=== PATIENT | female | born 1935 | race Caucasian/White ===

== ENCOUNTER 2025-04-15 06:41 | Inpatient (IN) | payer MEDICAID ==
[~2025-04-15] VITALS: Ht 160 cm; Wt 67.1 kg
[2025-04-15] VITALS (53 sets, daily range): BP systolic 79–138; BP diastolic 49–71; PULSE 75–96; RESP 16–33; TEMP 36.6–36.8; O2SAT 91–99
[2025-04-15] MEDS: LACTATED RINGERS 1,000 ML IV SCH (07:00)
[2025-04-15] MEDS: CEFTRIAXONE 1GM/50ML 50 ML IV ONE (07:09)
[2025-04-15] MEDS: METHYLPREDNISOLONE SOD SUCC 125MG/2ML (ACT-O-VIAL) IV STA (07:19)
[2025-04-15 07:40] LABS: LACTIC ACID 3.2 mmol/L (0.4-2.0)
[2025-04-15] MEDS: IPRATROPIUM BROMIDE (0.02%) 0.5MG/2.5ML NEB HHN STA (07:40)
[2025-04-15] MEDS: ALBUTEROL (0.083%) 2.5MG/3ML NEB HHN SCH (07:40)
[2025-04-15 08:23] LABS: CREATININE 1.0 mg/dL (0.6-1.0); UREA NITROGEN BLOOD 41 mg/dL (9-23)
[2025-04-15 08:24] LABS: TROPONIN I HIGH SENSITIVITY 20 ng/L (3.0-34)
[2025-04-15 08:25] LABS: ASPARTATE AMINOTRANSFERASE 21 IU/L (<34)
[2025-04-15 08:26] LABS: BILIRUBIN DIRECT 0.3 mg/dL (<=3.0); BILIRUBIN TOTAL 0.6 mg/dL (0.1-1.0); PROTEIN TOTAL 4.6 g/dL (6.0-8.3)
[2025-04-15 08:27] LABS: HEMATOCRIT. 43.3 % (36.0-48.0); HEMOGLOBIN. 14.5 g/dL (12.0-16.0); MEAN PLATELET VOLUME 8.4 fl (7.4-10.4); PLATELET 106 x1000/uL (130-400); RED BLOOD CELL COUNT 4.43 mill/uL (4.2-5.4); RED CELL DISTRIBUTION WIDTH 15.3 % (11.6-14.6)
[2025-04-15] MEDS: NOREPINEPHRINE 8MG/250ML PMX 250 ML IV ONE (08:28)
[2025-04-15] MEDS: AZITHROMYCIN 500MG/250ML 250 ML IV STA (08:31)
[2025-04-15 08:39] LABS: INR 1.3
[2025-04-15 09:20] LABS: TROPONIN I HIGH SENSITIVITY 25 ng/L (3.0-34)
[2025-04-15 09:42] LABS: BAND% 52.0 % (1.0-6.0); LYMPHOCYTES % MANUAL 1.0 % (20.0-60.0); MONOCYTES % MANUAL 2.0 % (2.0-8.0); NEUTROPHILS % MANUAL 45.0 % (45.0-75.0)
[2025-04-15 09:43] LABS: PLATELET ESTIMATE DECREAS
[2025-04-15] MEDS ORDERED: CEFEPIME 1GM IN DEXT 5% 50ML IV SCH (10:45)
[2025-04-15] MEDS: METHYLPREDNISOLONE SOD SUCC 40MG/ML (ACT-O-VIAL) IV SCH (10:55)
[2025-04-15] MEDS: GUAIFENESIN 600MG ER TABLET PO SCH (10:55)
[2025-04-15 11:01] LABS: BG BASE EXCESS 4.6 mmol/L (-2.0-3.0); BG CARBOXYHEMOGLOBIN 0.6 % (0.5-1.5); BG DEOXYHEMOGLOBIN 7.1 % (0.0-5.0); BG FLOW(L/min) 6.00 L/min; BG FRACTION INSPIRED OXYGEN 44; BG HCO3 ACT 30.7 mmol/L (21.0-28.0); BG METHEMOGLOBIN 0.3 % (0.5-1.5); BG OXYGEN SATURATION 92.8 % (94.0-98.0); BG OXYHEMOGLOBIN 92.0 % (94.0-98.0); BG PCO2 50.1 mmHg (32.0-45.0); BG PH 7.405 (7.350-7.450); BG PO2 66.7 mmHg (83.0-108.0); BG SAMPLE SITE LEFT BRACHIAL; BG TOTAL HEMOGLOBIN 16.5 g/dL (12.0-16.0); BG VENT MODE NASAL CANNULA
[2025-04-15] MEDS: PANTOPRAZOLE SODIUM 40 MG/VIAL IV SCH (13:01)
[2025-04-15] MEDS: CEFEPIME 1GM/50ML 50 ML IV SCH (14:38)
[2025-04-15] MEDS: NOREPINEPHRINE 8MG/250ML PMX 250 ML IV PRN (14:55)
[2025-04-15] MEDS: IPRATROPIUM/ALBUTEROL 0.5-3(2.5)MG/3ML NEB HHN SCH (15:13)
[2025-04-16] VITALS (92 sets, daily range): BP systolic 90–178; BP diastolic 42–84; PULSE 66–96; RESP 18–29; TEMP 36.4–37.1; O2SAT 91–99
[2025-04-16] MEDS ORDERED: ONDANSETRON HCL 4MG/2ML INJ IV PRN (02:30)
[2025-04-16] MEDS ORDERED: ACETAMINOPHEN 325MG TABLET PO PRN (02:30)
[2025-04-16] MEDS: SODIUM CHLORIDE 0.9% 1,000 ML IV SCH (02:30)
[2025-04-16] MEDS ORDERED: DIPHENHYDRAMINE 50MG/ML VIAL IV PRN (02:30)
[2025-04-16] MEDS: SODIUM CHLORIDE 0.9% 3ML FLUSH IVF SCH (06:35)
[2025-04-16] MEDS: AZITHROMYCIN 500 MG TABLET PO SCH (09:04)
[2025-04-16] MEDS: MIDODRINE HCL 5MG TABLET PO SCH (10:12)
[2025-04-16] MEDS: ACETYLCYSTEINE 200MG/ML 20% VIAL 4ML INH SCH (13:48)
[2025-04-16] MEDS: ENOXAPARIN 60MG/0.6ML SYR SUBCUT SCH (16:15)
[2025-04-17] VITALS (56 sets, daily range): BP systolic 97–123; BP diastolic 48–77; PULSE 60–85; RESP 12–25; TEMP 36.4–36.9; O2SAT 94–99
[2025-04-17 06:11] LABS: HEMATOCRIT. 43.8 % (36.0-48.0); HEMOGLOBIN. 14.6 g/dL (12.0-16.0); MEAN PLATELET VOLUME 8.6 fl (7.4-10.4); PLATELET 75 x1000/uL (130-400); RED BLOOD CELL COUNT 4.49 mill/uL (4.2-5.4); RED CELL DISTRIBUTION WIDTH 15.2 % (11.6-14.6)
[2025-04-17 06:16] LABS: UREA NITROGEN BLOOD 25 mg/dL (9-23)
[2025-04-17 06:28] LABS: CREATININE 0.5 mg/dL (0.6-1.0)
[2025-04-17] MEDS: METHYLPREDNISOLONE SOD SUCC 40MG/ML (ACT-O-VIAL) IV SCH (09:05)
[2025-04-17 11:40] LABS: BAND% 19.0 % (1.0-6.0); LYMPHOCYTES % MANUAL 3.0 % (20.0-60.0); METAMYELOCYTES % 2.0 % (0-0); MONOCYTES % MANUAL 2.0 % (2.0-8.0); NEUTROPHILS % MANUAL 74.0 % (45.0-75.0)
[2025-04-17 11:41] LABS: PLATELET ESTIMATE DECREASED
[2025-04-17] MEDS: ACETAMINOPHEN 325MG TABLET PO PRN (17:14)
[2025-04-18] VITALS (9 sets, daily range): BP systolic 117–132; BP diastolic 45–65; PULSE 65–88; RESP 16–20; TEMP 36.2–36.6; O2SAT 93–100
[2025-04-19] VITALS (10 sets, daily range): BP systolic 114–146; BP diastolic 7–85; PULSE 67–85; RESP 16–20; TEMP 36.2–36.6; O2SAT 96–100
[2025-04-20] VITALS (9 sets, daily range): BP systolic 105–147; BP diastolic 63–84; PULSE 18–105; RESP 15–22; TEMP 36.2–36.4; O2SAT 93–100
[2025-04-21] VITALS (7 sets, daily range): BP systolic 97–155; BP diastolic 47–74; PULSE 79–127; RESP 16–20; TEMP 36.4–36.6; O2SAT 92–98
[2025-04-21 11:21] LABS: HEMATOCRIT. 46.8 % (36.0-48.0); HEMOGLOBIN. 15.4 g/dL (12.0-16.0); MEAN PLATELET VOLUME 8.5 fl (7.4-10.4); PLATELET 84 x1000/uL (130-400); RED BLOOD CELL COUNT 4.91 mill/uL (4.2-5.4); RED CELL DISTRIBUTION WIDTH 14.9 % (11.6-14.6)
[2025-04-21 11:46] LABS: CREATININE 0.4 mg/dL (0.6-1.0); UREA NITROGEN BLOOD 13 mg/dL (9-23)
[2025-04-21 11:48] LABS: PHOSPHORUS 2.5 mg/dL (2.5-4.9)
[2025-04-21 14:25] LABS: BAND% 44.0 % (1.0-6.0); LYMPHOCYTES % MANUAL 3.0 % (20.0-60.0); MONOCYTES % MANUAL 1.0 % (2.0-8.0); NEUTROPHILS % MANUAL 52.0 % (45.0-75.0)
[2025-04-21 14:26] LABS: PLATELET ESTIMATE DECREAS
[2025-04-21] MEDS ORDERED: DIGOXIN 500MCG/2ML AMP IV ONE (18:30)
[2025-04-21] MEDS: DIGOXIN 500MCG/2ML AMP IV SCH ×2 (18:52→22:30)
[2025-04-21] MEDS: DEXT 5%/0.45% NACL 1000ML 1,000 ML IV SCH (18:52)
[2025-04-21] MEDS: DILTIAZEM HCL 5MG/ML 5ML VIAL IV SCH (18:52)
[2025-04-21 19:30] LABS: HEPATITIS C VIR.AB 0.03 INDEXVAL (0.00-0.80)
[2025-04-21 20:43] LABS: HIV 1/2 AB P24AG Negative (Negative)
[2025-04-21] MEDS: BUDESONIDE 0.5MG/2ML NEB HHN SCH (23:55)
[2025-04-22] VITALS (8 sets, daily range): BP systolic 125–147; BP diastolic 52–71; PULSE 89–102; RESP 18–20; TEMP 36.2–36.8; O2SAT 92–98
[2025-04-22] MEDS: KCL 20MEQ/100ML PREMIX 100 ML IV SCH (10:03)
[2025-04-22] MEDS ORDERED: CEFEPIME 2GM IN DEXT 5% 100ML IV SCH (11:00)
[2025-04-22] MEDS: MAGNESIUM 4 G PREMIX 100 ML IV ONE (11:15)
[2025-04-22] MEDS: CEFEPIME 2GM PREMIX 100ML IV SCH (12:22)
[2025-04-23] VITALS (9 sets, daily range): BP systolic 111–142; BP diastolic 44–78; PULSE 85–93; RESP 18–20; TEMP 36.3–36.6; O2SAT 90–99
[2025-04-23] MEDS: IPRATROPIUM BROMIDE (0.02%) 0.5MG/2.5ML NEB HHN SCH (11:12)
[2025-04-24] VITALS (10 sets, daily range): BP systolic 112–132; BP diastolic 41–58; PULSE 70–88; RESP 17–25; TEMP 36.4–36.6; O2SAT 94–98
[2025-04-24 07:37] LABS: HEMATOCRIT. 44.1 % (36.0-48.0); HEMOGLOBIN. 14.1 g/dL (12.0-16.0); RED BLOOD CELL COUNT 4.43 mill/uL (4.2-5.4); RED CELL DISTRIBUTION WIDTH 14.8 % (11.6-14.6)
[2025-04-24 08:00] LABS: CREATININE 0.5 mg/dL (0.6-1.0)
[2025-04-24 08:01] LABS: UREA NITROGEN BLOOD 10 mg/dL (9-23)
[2025-04-24 08:03] LABS: PHOSPHORUS 2.3 mg/dL (2.5-4.9)
[2025-04-24] MEDS: IPRATROPIUM BROMIDE (0.02%) 0.5MG/2.5ML NEB HHN SCH (08:55)
[2025-04-24 09:11] LABS: PLATELET 39 x1000/uL (130-400)
[2025-04-24 09:16] LABS: BAND% 70.0 % (1.0-6.0); LYMPHOCYTES % MANUAL 1.0 % (20.0-60.0); MONOCYTES % MANUAL 2.0 % (2.0-8.0); NEUTROPHILS % MANUAL 27.0 % (45.0-75.0); PLATELET ESTIMATE DECREASED
[2025-04-24] MEDS: KCL 20MEQ/100ML PREMIX 100 ML IV ONE (09:38)
[2025-04-24] MEDS: MAGNESIUM 1 G PREMIX 100 ML IV SCH (13:14)
[2025-04-24] MEDS: ACETYLCYSTEINE 200MG/ML 20% VIAL 4ML INH SCH (13:47)
[2025-04-24] MEDS: POTASSIUM PHOSPHATE 20 MMOL in DEXT 5% WATER 243.3333 ML IV ONE (14:48)
[2025-04-25] VITALS (12 sets, daily range): BP systolic 97–126; BP diastolic 49–69; PULSE 66–96; RESP 16–24; TEMP 36.4–36.8; O2SAT 94–98
[2025-04-25] MEDS: LEVOTHYROXINE SODIUM 100MCG TABLET NG SCH (11:30)
[2025-04-26] VITALS (12 sets, daily range): BP systolic 120–135; BP diastolic 51–64; PULSE 76–91; RESP 17–24; TEMP 36.3–36.8; O2SAT 5–99
[2025-04-26] MEDS: IPRATROPIUM/ALBUTEROL 0.5-3(2.5)MG/3ML NEB HHN PRN (09:06)
[2025-04-26] MEDS: IPRATROPIUM/ALBUTEROL 0.5-3(2.5)MG/3ML NEB HHN SCH (13:10)
[2025-04-26] MEDS: POTASSIUM CHLORIDE 20MEQ/PACKET NG SCH (21:49)
[2025-04-26] MEDS: FUROSEMIDE 40MG/4ML VIAL IVP SCH (21:49)
[2025-04-26] MEDS: GUAIFENESIN 200MG/10ML SUGAR FREE UDC NG PRN (21:49)
[2025-04-27] VITALS (21 sets, daily range): BP systolic 86–129; BP diastolic 36–73; PULSE 78–96; RESP 18–41; TEMP 36.4–37; O2SAT 89–97
[2025-04-27 06:46] LABS: CREATININE 0.7 mg/dL (0.6-1.0); UREA NITROGEN BLOOD 14 mg/dL (9-23)
[2025-04-27 06:48] LABS: BASOPHILS % 0.2 % (0.0-2.0); EOSINOPHILS % 1.5 % (0.0-5.0); HEMATOCRIT. 42.4 % (36.0-48.0); HEMOGLOBIN. 13.8 g/dL (12.0-16.0); LYMPHOCYTES % 7.9 % (20.0-50.0); MEAN PLATELET VOLUME 8.7 fl (7.4-10.4); MONOCYTES % 3.2 % (2.0-8.0); NEUTROPHILS % 87.2 % (40.0-76.0); PHOSPHORUS 1.6 mg/dL (2.5-4.9); RED BLOOD CELL COUNT 4.35 mill/uL (4.2-5.4); RED CELL DISTRIBUTION WIDTH 14.6 % (11.6-14.6)
[2025-04-27] MEDS ORDERED: MAGNESIUM 4 G PREMIX 100 ML IV NR (11:00)
[2025-04-27] MEDS: MAGNESIUM 4 G PREMIX 100 ML IV ONE (11:26)
[2025-04-27] MEDS: POTASSIUM CHLORIDE 20MEQ/PACKET PO SCH (11:26)
[2025-04-27 13:16] LABS: PLATELET 37 x1000/uL (130-400)
[2025-04-27] MEDS: MIDODRINE HCL 5MG TABLET PO SCH (17:19)
[2025-04-28] VITALS (23 sets, daily range): BP systolic 79–161; BP diastolic 38–116; PULSE 75–123; RESP 22–35; TEMP 36.5–37.2; O2SAT 85–99
[2025-04-28 07:35] LABS: BG BASE EXCESS 13.0 mmol/L (-2.0-3.0); BG CARBOXYHEMOGLOBIN 1.0 % (0.5-1.5); BG DEOXYHEMOGLOBIN 3.4 % (0.0-5.0); BG FLOW(L/min) 15.00 L/min; BG FRACTION INSPIRED OXYGEN 100; BG HCO3 ACT 43.6 mmol/L (21.0-28.0); BG METHEMOGLOBIN 0.4 % (0.5-1.5); BG OXYGEN SATURATION 96.6 % (94.0-98.0); BG OXYHEMOGLOBIN 95.2 % (94.0-98.0); BG PCO2 90.4 mmHg (32.0-45.0); BG PH 7.301 (7.350-7.450); BG PO2 91.2 mmHg (83.0-108.0); BG SAMPLE SITE RIGHT RADIAL; BG TOTAL HEMOGLOBIN 13.7 g/dL (12.0-16.0); BG VENT MODE MASK - NRB
[2025-04-28 10:44] LABS: BG BASE EXCESS 17.1 mmol/L (-2.0-3.0); BG CARBOXYHEMOGLOBIN 0.5 % (0.5-1.5); BG DEOXYHEMOGLOBIN 2.9 % (0.0-5.0); BG FRACTION INSPIRED OXYGEN 100; BG HCO3 ACT 46.8 mmol/L (21.0-28.0); BG METHEMOGLOBIN 0.2 % (0.5-1.5); BG OXYGEN SATURATION 97.1 % (94.0-98.0); BG OXYHEMOGLOBIN 96.4 % (94.0-98.0); BG PCO2 86.8 mmHg (32.0-45.0); BG PH 7.350 (7.350-7.450); BG PO2 91.3 mmHg (83.0-108.0); BG SAMPLE SITE RIGHT RADIAL; BG TOTAL HEMOGLOBIN 12.7 g/dL (12.0-16.0); BG VENT MODE MASK - BIPAP; BG VENT RATE 22.0 set
[2025-04-28] MEDS: SODIUM CHLORIDE 0.9% 500 ML IV ONE (14:15)
[2025-04-28] MEDS: MIDODRINE HCL 5MG TABLET PO SCH (14:15)
[2025-04-28] MEDS: MIDODRINE HCL 5MG TABLET PO NR (14:16)
[2025-04-28 16:27] LABS: PLATELET 52 x1000/uL (130-400); RED BLOOD CELL COUNT 3.53 mill/uL (4.2-5.4); RED CELL DISTRIBUTION WIDTH 15.3 % (11.6-14.6)
[2025-04-28] MEDS: POTASSIUM PHOSPHATE 30 MMOL in DEXT 5% WATER 490 ML IV SCH (16:31)
[2025-04-28 16:45] LABS: CREATININE 0.8 mg/dL (0.6-1.0); UREA NITROGEN BLOOD 24 mg/dL (9-23)
[2025-04-28 16:47] LABS: PHOSPHORUS 3.1 mg/dL (2.5-4.9)
[2025-04-28] MEDS ORDERED: MIDODRINE HCL 5MG TABLET PO SCH (17:00)
[2025-04-28] MEDS: MIDODRINE HCL 5MG TABLET NG SCH (18:39)
[2025-04-28 19:14] LABS: CLARITY URINE CLOUDY (CLEAR); COLOR URINE DARK YELLOW (YELLOW); GLUCOSE URINE NEGATIVE (NEGATIVE); KETONES URINE TRACE (NEGATIVE); LEUKOCYTE ESTERASE URINE TRACE (NEGATIVE); NITRITE URINE NEGATIVE (NEGATIVE); OCCULT BLOOD URINE TRACE (NEGATIVE); PH URINE 5.0 (4.5-8.0); PROTEIN URINE 2+ (NEGATIVE); SPECIFIC GRAVITY URINE 1.022 (1.005-1.030); UROBILINOGEN URINE 1.0 E.U./dL (0.2-1.0)
[2025-04-28 20:05] LABS: BACTERIA URINE 2+; RBC URINE 0-2 /hpf (0-2); SQUAMOUS EPITHELIAL CELL URINE 1+ /lpf (RARE/1+); WBC URINE 0-2 /hpf (0-2)
[2025-04-29] VITALS (18 sets, daily range): BP systolic 103–129; BP diastolic 39–76; PULSE 66–86; RESP 19–32; TEMP 36.7–36.9; O2SAT 93–100
[2025-04-29] MEDS: MEROPENEM 1G/100ML 100 ML IV SCH ×2 (06:00→17:52)
[2025-04-29 06:21] LABS: HEMATOCRIT. 35.1 % (36.0-48.0); HEMOGLOBIN. 11.2 g/dL (12.0-16.0); MEAN PLATELET VOLUME 8.7 fl (7.4-10.4); RED BLOOD CELL COUNT 3.60 mill/uL (4.2-5.4); RED CELL DISTRIBUTION WIDTH 15.0 % (11.6-14.6)
[2025-04-29 06:29] LABS: PLATELET 50 x1000/uL (130-400)
[2025-04-29 06:35] LABS: CREATININE 0.8 mg/dL (0.6-1.0); UREA NITROGEN BLOOD 26 mg/dL (9-23)
[2025-04-29 06:37] LABS: PHOSPHORUS 5.0 mg/dL (2.5-4.9)
[2025-04-29 12:06] LABS: BAND% 58.0 % (1.0-6.0); LYMPHOCYTES % MANUAL 4.0 % (20.0-60.0); MONOCYTES % MANUAL 2.0 % (2.0-8.0); NEUTROPHILS % MANUAL 36.0 % (45.0-75.0); PLATELET ESTIMATE DECREASED
[2025-04-30] VITALS (17 sets, daily range): BP systolic 101–124; BP diastolic 38–53; PULSE 76–91; RESP 22–32; TEMP 36.2–37.2; O2SAT 88–100
[2025-04-30] MEDS: DEXT 5%/0.45% NACL 1000ML 1,000 ML IV SCH (14:29)
[2025-04-30 19:04] LABS: BG BASE EXCESS 17.2 mmol/L (-2.0-3.0); BG CARBOXYHEMOGLOBIN 0.4 % (0.5-1.5); BG DEOXYHEMOGLOBIN 10.6 % (0.0-5.0); BG FRACTION INSPIRED OXYGEN 70; BG HCO3 ACT 46.5 mmol/L (21.0-28.0); BG METHEMOGLOBIN 0.1 % (0.5-1.5); BG OXYGEN SATURATION 89.3 % (94.0-98.0); BG OXYHEMOGLOBIN 88.9 % (94.0-98.0); BG PCO2 82.5 mmHg (32.0-45.0); BG PH 7.369 (7.350-7.450); BG PO2 59.2 mmHg (83.0-108.0); BG SAMPLE SITE RIGHT RADIAL; BG TOTAL HEMOGLOBIN 12.8 g/dL (12.0-16.0); BG TOTAL RESPIRATORY RATE 32 b/min; BG VENT MODE MASK - BIPAP; BG VENT RATE 22.0 set
[2025-04-30 22:17] LABS: HEMATOCRIT. 37.3 % (36.0-48.0); HEMOGLOBIN. 11.8 g/dL (12.0-16.0); MEAN PLATELET VOLUME 8.9 fl (7.4-10.4); RED BLOOD CELL COUNT 3.77 mill/uL (4.2-5.4); RED CELL DISTRIBUTION WIDTH 15.1 % (11.6-14.6)
[2025-04-30 22:34] LABS: CREATININE 0.6 mg/dL (0.6-1.0); UREA NITROGEN BLOOD 26 mg/dL (9-23)
[2025-04-30 22:36] LABS: ASPARTATE AMINOTRANSFERASE 15 IU/L (<34); BILIRUBIN TOTAL 0.6 mg/dL (0.1-1.0); PROTEIN TOTAL 4.5 g/dL (6.0-8.3)
[2025-04-30 22:40] LABS: PLATELET 47 x1000/uL (130-400)
[2025-04-30 22:59] LABS: BAND% 4.0 % (1.0-6.0); EOSINOPHILS % MANUAL 1.0 % (0.0-5.0); LYMPHOCYTES % MANUAL 7.0 % (20.0-60.0); MONOCYTES % MANUAL 6.0 % (2.0-8.0); NEUTROPHILS % MANUAL 82.0 % (45.0-75.0)
[2025-04-30 23:00] LABS: PLATELET ESTIMATE MARKEDLY DECREASED
[2025-05-01] VITALS (16 sets, daily range): BP systolic 95–135; BP diastolic 39–54; PULSE 83–94; RESP 22–33; TEMP 36.6–37.1; O2SAT 92–99
[2025-05-01 07:53] LABS: HEMATOCRIT. 34.4 % (36.0-48.0); HEMOGLOBIN. 11.1 g/dL (12.0-16.0); MEAN PLATELET VOLUME 9.5 fl (7.4-10.4); RED BLOOD CELL COUNT 3.48 mill/uL (4.2-5.4); RED CELL DISTRIBUTION WIDTH 15.4 % (11.6-14.6)
[2025-05-01 08:09] LABS: CREATININE 0.6 mg/dL (0.6-1.0); UREA NITROGEN BLOOD 25 mg/dL (9-23)
[2025-05-01 08:11] LABS: ASPARTATE AMINOTRANSFERASE 15 IU/L (<34)
[2025-05-01 08:12] LABS: BILIRUBIN TOTAL 0.5 mg/dL (0.1-1.0); PROTEIN TOTAL 4.2 g/dL (6.0-8.3)
[2025-05-01 08:16] LABS: PLATELET 45 x1000/uL (130-400)
[2025-05-01 12:40] LABS: BG BASE EXCESS 15.5 mmol/L (-2.0-3.0); BG CARBOXYHEMOGLOBIN 1.3 % (0.5-1.5); BG DEOXYHEMOGLOBIN 5.5 % (0.0-5.0); BG FRACTION INSPIRED OXYGEN 50; BG HCO3 ACT 44.4 mmol/L (21.0-28.0); BG METHEMOGLOBIN 0.0 % (0.5-1.5); BG OXYGEN SATURATION 94.4 % (94.0-98.0); BG OXYHEMOGLOBIN 93.2 % (94.0-98.0); BG PCO2 79.5 mmHg (32.0-45.0); BG PH 7.365 (7.350-7.450); BG PO2 71.0 mmHg (83.0-108.0); BG SAMPLE SITE LEFT RADIAL; BG TOTAL HEMOGLOBIN 12.3 g/dL (12.0-16.0); BG VENT MODE MASK - CPAP; BG VENT RATE 24.0 set
[2025-05-01 14:23] LABS: BAND% 27.0 % (1.0-6.0); LYMPHOCYTES % MANUAL 4.0 % (20.0-60.0); MONOCYTES % MANUAL 3.0 % (2.0-8.0); NEUTROPHILS % MANUAL 66.0 % (45.0-75.0)
[2025-05-01 14:24] LABS: PLATELET ESTIMATE MARKEDLY DECREASED
[2025-05-02] VITALS (17 sets, daily range): BP systolic 92–110; BP diastolic 40–59; PULSE 78–92; RESP 24–32; TEMP 36.1–36.6; O2SAT 93–98
[2025-05-02 08:25] LABS: BG BASE EXCESS 17.2 mmol/L (-2.0-3.0); BG CARBOXYHEMOGLOBIN 0.6 % (0.5-1.5); BG DEOXYHEMOGLOBIN 4.8 % (0.0-5.0); BG FRACTION INSPIRED OXYGEN 50; BG HCO3 ACT 45.7 mmol/L (21.0-28.0); BG METHEMOGLOBIN 0.1 % (0.5-1.5); BG OXYGEN SATURATION 95.2 % (94.0-98.0); BG OXYHEMOGLOBIN 94.5 % (94.0-98.0); BG PCO2 76.8 mmHg (32.0-45.0); BG PH 7.392 (7.350-7.450); BG PO2 75.6 mmHg (83.0-108.0); BG SAMPLE SITE RIGHT RADIAL; BG TOTAL HEMOGLOBIN 12.0 g/dL (12.0-16.0); BG VENT MODE MASK - BIPAP; BG VENT RATE 24.0 set
[2025-05-03] VITALS (19 sets, daily range): BP systolic 95–118; BP diastolic 43–54; PULSE 74–97; RESP 20–32; TEMP 36.2–36.9; O2SAT 89–100
[2025-05-04] VITALS (18 sets, daily range): BP systolic 101–124; BP diastolic 47–60; PULSE 73–86; RESP 21–31; TEMP 36.3–36.7; O2SAT 92–99
[2025-05-04 07:55] LABS: BG BASE EXCESS 14.8 mmol/L (-2.0-3.0); BG CARBOXYHEMOGLOBIN 1.2 % (0.5-1.5); BG DEOXYHEMOGLOBIN 4.4 % (0.0-5.0); BG FRACTION INSPIRED OXYGEN 40; BG HCO3 ACT 41.2 mmol/L (21.0-28.0); BG METHEMOGLOBIN 0.1 % (0.5-1.5); BG OXYGEN SATURATION 95.5 % (94.0-98.0); BG OXYHEMOGLOBIN 94.3 % (94.0-98.0); BG PCO2 59.2 mmHg (32.0-45.0); BG PH 7.460 (7.350-7.450); BG PO2 73.9 mmHg (83.0-108.0); BG SAMPLE SITE RIGHT RADIAL; BG TOTAL HEMOGLOBIN 12.1 g/dL (12.0-16.0); BG TOTAL RESPIRATORY RATE 24 b/min; BG VENT MODE MASK - BIPAP; BG VENT RATE 24.0 set
[2025-05-05] VITALS (18 sets, daily range): BP systolic 101–126; BP diastolic 40–59; PULSE 75–87; RESP 17–33; TEMP 36.3–37.6; O2SAT 94–100
[2025-05-06] VITALS (14 sets, daily range): BP systolic 104–126; BP diastolic 43–59; PULSE 71–104; RESP 19–29; TEMP 36.2–37.2; O2SAT 94–99
[2025-05-06 09:05] LABS: BG BASE EXCESS 13.6 mmol/L (-2.0-3.0); BG CARBOXYHEMOGLOBIN 0.3 % (0.5-1.5); BG DEOXYHEMOGLOBIN 6.6 % (0.0-5.0); BG FRACTION INSPIRED OXYGEN 40; BG HCO3 ACT 40.4 mmol/L (21.0-28.0); BG METHEMOGLOBIN 0.0 % (0.5-1.5); BG OXYGEN SATURATION 93.4 % (94.0-98.0); BG OXYHEMOGLOBIN 93.1 % (94.0-98.0); BG PCO2 65.2 mmHg (32.0-45.0); BG PH 7.410 (7.350-7.450); BG PO2 71.9 mmHg (83.0-108.0); BG SAMPLE SITE RIGHT RADIAL; BG TOTAL HEMOGLOBIN 10.1 g/dL (12.0-16.0); BG VENT MODE MASK - BIPAP; BG VENT RATE 24.0 set
[2025-05-06] MEDS: IPRATROPIUM/ALBUTEROL 0.5-3(2.5)MG/3ML NEB HHN PRN (09:54)
[2025-05-07] VITALS (14 sets, daily range): BP systolic 113–166; BP diastolic 47–71; PULSE 80–105; RESP 24–28; TEMP 36.3–37.1; O2SAT 91–100
[2025-05-07] MEDS: LIDOCAINE HCL 1% 10 MG/ML 10ML VIAL ONE (10:39)
[2025-05-07] MEDS: ACETYLCYSTEINE 200MG/ML 20% VIAL 4ML INH SCH (21:59)
[2025-05-08] VITALS (15 sets, daily range): BP systolic 101–132; BP diastolic 48–72; PULSE 78–103; RESP 18–30; TEMP 36.8–37.1; O2SAT 92–100
[2025-05-08 06:32] LABS: UREA NITROGEN BLOOD 14 mg/dL (9-23)
[2025-05-08 06:33] LABS: CREATININE 0.4 mg/dL (0.6-1.0)
[2025-05-08 09:33] LABS: HEMATOCRIT. 28.4 % (36.0-48.0); HEMOGLOBIN. 9.3 g/dL (12.0-16.0); MEAN PLATELET VOLUME 8.3 fl (7.4-10.4); PLATELET 259 x1000/uL (130-400); RED BLOOD CELL COUNT 2.88 mill/uL (4.2-5.4); RED CELL DISTRIBUTION WIDTH 15.3 % (11.6-14.6)
[2025-05-08 10:56] LABS: BG BASE EXCESS 15.8 mmol/L (-2.0-3.0); BG CARBOXYHEMOGLOBIN 1.7 % (0.5-1.5); BG DEOXYHEMOGLOBIN 9.9 % (0.0-5.0); BG FLOW(L/min) 40.00 L/min; BG FRACTION INSPIRED OXYGEN 40; BG HCO3 ACT 44.7 mmol/L (21.0-28.0); BG METHEMOGLOBIN 0.3 % (0.5-1.5); BG OXYGEN SATURATION 89.9 % (94.0-98.0); BG OXYHEMOGLOBIN 88.1 % (94.0-98.0); BG PCO2 83.4 mmHg (32.0-45.0); BG PH 7.347 (7.350-7.450); BG PO2 59.8 mmHg (83.0-108.0); BG SAMPLE SITE LEFT RADIAL; BG TOTAL HEMOGLOBIN 10.8 g/dL (12.0-16.0); BG VENT MODE HIGH FLOW
[2025-05-08] MEDS: ENOXAPARIN 80MG/0.8ML SYR SUBCUT SCH (11:37)
[2025-05-08 16:27] LABS: BAND% 7.0 % (1.0-6.0); EOSINOPHILS % MANUAL 2.0 % (0.0-5.0); LYMPHOCYTES % MANUAL 13.0 % (20.0-60.0); METAMYELOCYTES % 2.0 % (0-0); MONOCYTES % MANUAL 11.0 % (2.0-8.0); MYELOCYTES % 2.0 % (0-0); NEUTROPHILS % MANUAL 63.0 % (45.0-75.0)
[2025-05-08 16:28] LABS: PLATELET ESTIMATE NORMAL
[2025-05-09] VITALS (19 sets, daily range): BP systolic 118–144; BP diastolic 52–71; PULSE 81–105; RESP 20–36; TEMP 36.1–37.7; O2SAT 91–99
[2025-05-09 18:51] LABS: BG BASE EXCESS 15.8 mmol/L (-2.0-3.0); BG CARBOXYHEMOGLOBIN 1.9 % (0.5-1.5); BG DEOXYHEMOGLOBIN 11.8 % (0.0-5.0); BG FLOW(L/min) 40.00 L/min; BG FRACTION INSPIRED OXYGEN 40; BG HCO3 ACT 44.4 mmol/L (21.0-28.0); BG METHEMOGLOBIN 0.3 % (0.5-1.5); BG OXYGEN SATURATION 87.9 % (94.0-98.0); BG OXYHEMOGLOBIN 86.0 % (94.0-98.0); BG PCO2 82.8 mmHg (32.0-45.0); BG PH 7.347 (7.350-7.450); BG PO2 54.7 mmHg (83.0-108.0); BG SAMPLE SITE LEFT RADIAL; BG TOTAL HEMOGLOBIN 10.1 g/dL (12.0-16.0); BG VENT MODE HIGH FLOW
[2025-05-10] VITALS (16 sets, daily range): BP systolic 80–142; BP diastolic 33–85; PULSE 68–107; RESP 20–45; TEMP 35.6–37.2; O2SAT 87–97
[2025-05-10] MEDS: MIDODRINE HCL 5MG TABLET PO SCH (15:22)
[2025-05-11] VITALS (16 sets, daily range): BP systolic 100–132; BP diastolic 41–65; PULSE 67–84; RESP 19–26; TEMP 35.8–36.8; O2SAT 71–96
[2025-05-12] VITALS (16 sets, daily range): BP systolic 98–132; BP diastolic 45–78; PULSE 72–92; RESP 21–28; TEMP 36.1–37.2; O2SAT 87–99
[2025-05-12 08:58] LABS: BG BASE EXCESS 15.7 mmol/L (-2.0-3.0); BG CARBOXYHEMOGLOBIN 0.5 % (0.5-1.5); BG DEOXYHEMOGLOBIN 4.0 % (0.0-5.0); BG FLOW(L/min) 4.00 L/min; BG HCO3 ACT 41.9 mmol/L (21.0-28.0); BG METHEMOGLOBIN 0.3 % (0.5-1.5); BG OXYGEN SATURATION 96.0 % (94.0-98.0); BG OXYHEMOGLOBIN 95.2 % (94.0-98.0); BG PCO2 61.6 mmHg (32.0-45.0); BG PH 7.450 (7.350-7.450); BG PO2 79.8 mmHg (83.0-108.0); BG SAMPLE SITE LEFT RADIAL; BG TOTAL HEMOGLOBIN 9.3 g/dL (12.0-16.0); BG VENT MODE NASAL CANNULA
[2025-05-12 10:04] LABS: HEMATOCRIT. 27.2 % (36.0-48.0); HEMOGLOBIN. 9.0 g/dL (12.0-16.0); MEAN PLATELET VOLUME 7.5 fl (7.4-10.4); PLATELET 363 x1000/uL (130-400); RED BLOOD CELL COUNT 2.78 mill/uL (4.2-5.4); RED CELL DISTRIBUTION WIDTH 15.8 % (11.6-14.6)
[2025-05-12 10:26] LABS: CREATININE 0.3 mg/dL (0.6-1.0)
[2025-05-12 10:27] LABS: UREA NITROGEN BLOOD 11 mg/dL (9-23)
[2025-05-12 10:29] LABS: PHOSPHORUS 3.1 mg/dL (2.5-4.9)
[2025-05-12] MEDS: IPRATROPIUM/ALBUTEROL 0.5-3(2.5)MG/3ML NEB HHN PRN (16:26)
[2025-05-13] VITALS (17 sets, daily range): BP systolic 96–143; BP diastolic 44–64; PULSE 70–82; RESP 21–26; TEMP 36.2–37; O2SAT 92–99
[2025-05-13 07:49] LABS: BAND% 29.0 % (1.0-6.0); EOSINOPHILS % MANUAL 1.0 % (0.0-5.0); LYMPHOCYTES % MANUAL 5.0 % (20.0-60.0); METAMYELOCYTES % 1.0 % (0-0); MONOCYTES % MANUAL 12.0 % (2.0-8.0); NEUTROPHILS % MANUAL 52.0 % (45.0-75.0); PLATELET ESTIMATE NORMAL
[2025-05-13 18:24] LABS: BG BASE EXCESS 18.5 mmol/L (-2.0-3.0); BG CARBOXYHEMOGLOBIN 0.6 % (0.5-1.5); BG DEOXYHEMOGLOBIN 7.3 % (0.0-5.0); BG FLOW(L/min) 5.00 L/min; BG FRACTION INSPIRED OXYGEN 40; BG HCO3 ACT 46.8 mmol/L (21.0-28.0); BG METHEMOGLOBIN 0.3 % (0.5-1.5); BG OXYGEN SATURATION 92.6 % (94.0-98.0); BG OXYHEMOGLOBIN 91.8 % (94.0-98.0); BG PCO2 82.9 mmHg (32.0-45.0); BG PH 7.370 (7.350-7.450); BG PO2 69.2 mmHg (83.0-108.0); BG SAMPLE SITE LEFT RADIAL; BG TOTAL HEMOGLOBIN 9.8 g/dL (12.0-16.0); BG VENT MODE NASAL CANNULA
[2025-05-14] VITALS (18 sets, daily range): BP systolic 97–126; BP diastolic 44–55; PULSE 69–77; RESP 18–25; TEMP 36.2–36.8; O2SAT 96–98
[2025-05-15] VITALS (16 sets, daily range): BP systolic 101–148; BP diastolic 43–73; PULSE 70–96; RESP 14–26; TEMP 36.2–36.8; O2SAT 97–99
[2025-05-15 10:09] LABS: BG BASE EXCESS 15.8 mmol/L (-2.0-3.0); BG CARBOXYHEMOGLOBIN 0.5 % (0.5-1.5); BG DEOXYHEMOGLOBIN 2.4 % (0.0-5.0); BG FRACTION INSPIRED OXYGEN 50; BG HCO3 ACT 43.2 mmol/L (21.0-28.0); BG METHEMOGLOBIN 0.1 % (0.5-1.5); BG OXYGEN SATURATION 97.6 % (94.0-98.0); BG OXYHEMOGLOBIN 97.0 % (94.0-98.0); BG PCO2 72.1 mmHg (32.0-45.0); BG PH 7.395 (7.350-7.450); BG PO2 101.0 mmHg (83.0-108.0); BG SAMPLE SITE RIGHT RADIAL; BG TOTAL HEMOGLOBIN 9.6 g/dL (12.0-16.0); BG VENT MODE MASK - BIPAP; BG VENT RATE 24.0 set
[2025-05-15 16:58] LABS: HEMATOCRIT. 26.2 % (36.0-48.0); HEMOGLOBIN. 8.5 g/dL (12.0-16.0); MEAN PLATELET VOLUME 7.8 fl (7.4-10.4); PLATELET 282 x1000/uL (130-400); RED BLOOD CELL COUNT 2.62 mill/uL (4.2-5.4); RED CELL DISTRIBUTION WIDTH 16.5 % (11.6-14.6)
[2025-05-15 17:14] LABS: UREA NITROGEN BLOOD 9 mg/dL (9-23)
[2025-05-15 17:16] LABS: PHOSPHORUS 3.7 mg/dL (2.5-4.9)
[2025-05-15 17:35] LABS: CREATININE 0.4 mg/dL (0.6-1.0); EOSINOPHILS % MANUAL 2.0 % (0.0-5.0); LYMPHOCYTES % MANUAL 20.0 % (20.0-60.0); MONOCYTES % MANUAL 8.0 % (2.0-8.0); NEUTROPHILS % MANUAL 70.0 % (45.0-75.0); PLATELET ESTIMATE NORMAL
[2025-05-16] VITALS (18 sets, daily range): BP systolic 104–147; BP diastolic 46–86; PULSE 71–83; RESP 17–26; TEMP 36.6–36.8; O2SAT 99–100
[2025-05-16 08:33] LABS: HEMATOCRIT. 25.7 % (36.0-48.0); HEMOGLOBIN. 8.5 g/dL (12.0-16.0); MEAN PLATELET VOLUME 8.3 fl (7.4-10.4); PLATELET 252 x1000/uL (130-400); RED BLOOD CELL COUNT 2.59 mill/uL (4.2-5.4); RED CELL DISTRIBUTION WIDTH 16.4 % (11.6-14.6)
[2025-05-16 08:49] LABS: CREATININE 0.3 mg/dL (0.6-1.0); UREA NITROGEN BLOOD 8 mg/dL (9-23)
[2025-05-16 08:51] LABS: PHOSPHORUS 3.8 mg/dL (2.5-4.9)
[2025-05-16 17:27] LABS: EOSINOPHILS % MANUAL 1.0 % (0.0-5.0); LYMPHOCYTES % MANUAL 9.0 % (20.0-60.0); MONOCYTES % MANUAL 14.0 % (2.0-8.0); NEUTROPHILS % MANUAL 76.0 % (45.0-75.0); PLATELET ESTIMATE NORMAL
[2025-05-17] VITALS (14 sets, daily range): BP systolic 110–141; BP diastolic 45–67; PULSE 74–97; RESP 20–26; TEMP 36.4–36.8; O2SAT 99–100
[2025-05-17 06:59] LABS: HEMATOCRIT. 23.5 % (36.0-48.0); HEMOGLOBIN. 8.0 g/dL (12.0-16.0); MEAN PLATELET VOLUME 7.6 fl (7.4-10.4); PLATELET 229 x1000/uL (130-400); RED BLOOD CELL COUNT 2.38 mill/uL (4.2-5.4); RED CELL DISTRIBUTION WIDTH 16.3 % (11.6-14.6)
[2025-05-17 07:12] LABS: CREATININE 0.3 mg/dL (0.6-1.0)
[2025-05-17 07:13] LABS: UREA NITROGEN BLOOD 9 mg/dL (9-23)
[2025-05-17 08:01] LABS: BAND% 8.0 % (1.0-6.0); EOSINOPHILS % MANUAL 13.0 % (0.0-5.0); LYMPHOCYTES % MANUAL 14.0 % (20.0-60.0); MONOCYTES % MANUAL 7.0 % (2.0-8.0); NEUTROPHILS % MANUAL 58.0 % (45.0-75.0); PLATELET ESTIMATE NORMAL
[2025-05-17 10:06] LABS: BG SAMPLE SITE RIGHT RADIAL; BG VENT MODE ROOM AIR
[2025-05-17 10:07] LABS: BG FRACTION INSPIRED OXYGEN 21
[2025-05-17 10:08] LABS: BG BASE EXCESS 17.2 mmol/L (-2.0-3.0); BG HCO3 ACT 45.6 mmol/L (21.0-28.0); BG OXYGEN SATURATION 89.2 % (94.0-98.0); BG PCO2 87.7 mmHg (32.0-45.0); BG PH 7.334 (7.350-7.450); BG PO2 59.9 mmHg (83.0-108.0); BG TOTAL HEMOGLOBIN 8.5 g/dL (12.0-16.0)
[2025-05-17 10:09] LABS: BG CARBOXYHEMOGLOBIN 1.1 % (0.5-1.5); BG DEOXYHEMOGLOBIN 10.6 % (0.0-5.0); BG METHEMOGLOBIN 0.3 % (0.5-1.5); BG OXYHEMOGLOBIN 88.0 % (94.0-98.0)
[2025-05-17 14:59] LABS: BG BASE EXCESS 17.6 mmol/L (-2.0-3.0); BG CARBOXYHEMOGLOBIN 0.8 % (0.5-1.5); BG DEOXYHEMOGLOBIN 0.9 % (0.0-5.0); BG FRACTION INSPIRED OXYGEN 44; BG HCO3 ACT 46.0 mmol/L (21.0-28.0); BG METHEMOGLOBIN 0.2 % (0.5-1.5); BG OXYGEN SATURATION 99.1 % (94.0-98.0); BG OXYHEMOGLOBIN 98.1 % (94.0-98.0); BG PCO2 86.3 mmHg (32.0-45.0); BG PH 7.345 (7.350-7.450); BG PO2 144.7 mmHg (83.0-108.0); BG SAMPLE SITE LEFT RADIAL; BG TOTAL HEMOGLOBIN 8.8 g/dL (12.0-16.0); BG VENT MODE NASAL CANNULA
[2025-05-18] VITALS (11 sets, daily range): BP systolic 100–125; BP diastolic 44–72; PULSE 73–88; RESP 16–24; TEMP 36.4–36.8; O2SAT 95–100
[2025-05-18] MEDS: ACETYLCYSTEINE 200MG/ML 20% VIAL 4ML INH SCH (00:29)
[2025-05-18] MEDS: IPRATROPIUM/ALBUTEROL 0.5-3(2.5)MG/3ML NEB HHN SCH (00:30)
[2025-05-18 07:30] LABS: HEMATOCRIT. 22.6 % (36.0-48.0); HEMOGLOBIN. 7.4 g/dL (12.0-16.0); MEAN PLATELET VOLUME 7.4 fl (7.4-10.4); PLATELET 196 x1000/uL (130-400); RED BLOOD CELL COUNT 2.23 mill/uL (4.2-5.4); RED CELL DISTRIBUTION WIDTH 16.2 % (11.6-14.6)
[2025-05-18 07:56] LABS: UREA NITROGEN BLOOD 9 mg/dL (9-23)
[2025-05-18 09:04] LABS: CREATININE 0.4 mg/dL (0.6-1.0)
[2025-05-18 09:26] LABS: BAND% 10.0 % (1.0-6.0); BASOPHILS % MANUAL 1.0 % (0.0-2.0); EOSINOPHILS % MANUAL 3.0 % (0.0-5.0); LYMPHOCYTES % MANUAL 11.0 % (20.0-60.0); METAMYELOCYTES % 5.0 % (0-0); MONOCYTES % MANUAL 10.0 % (2.0-8.0); NEUTROPHILS % MANUAL 60.0 % (45.0-75.0)
[2025-05-18 09:27] LABS: PLATELET ESTIMATE NORMAL
[2025-05-19] VITALS (12 sets, daily range): BP systolic 100–144; BP diastolic 52–96; PULSE 81–102; RESP 18–25; TEMP 36.5–37.2; O2SAT 94–100
[2025-05-19 07:24] LABS: BASOPHILS % 0.5 % (0.0-2.0); EOSINOPHILS % 4.3 % (0.0-5.0); HEMATOCRIT. 23.4 % (36.0-48.0); HEMOGLOBIN. 7.9 g/dL (12.0-16.0); LYMPHOCYTES % 20.3 % (20.0-50.0); MEAN PLATELET VOLUME 7.7 fl (7.4-10.4); MONOCYTES % 9.2 % (2.0-8.0); NEUTROPHILS % 65.7 % (40.0-76.0); PLATELET 183 x1000/uL (130-400); RED BLOOD CELL COUNT 2.32 mill/uL (4.2-5.4); RED CELL DISTRIBUTION WIDTH 16.0 % (11.6-14.6)
[2025-05-19 07:57] LABS: CREATININE 0.3 mg/dL (0.6-1.0); UREA NITROGEN BLOOD 7 mg/dL (9-23)
[2025-05-20] VITALS (19 sets, daily range): BP systolic 109–137; BP diastolic 51–72; PULSE 82–102; RESP 16–27; TEMP 36.3–36.8; O2SAT 95–100
[2025-05-20] MEDS: ACETAMINOPHEN 325MG TABLET PO PRN (12:28)
[2025-05-20 13:28] LABS: BASOPHILS % 0.6 % (0.0-2.0); EOSINOPHILS % 4.6 % (0.0-5.0); HEMATOCRIT. 22.7 % (36.0-48.0); HEMOGLOBIN. 7.6 g/dL (12.0-16.0); LYMPHOCYTES % 18.3 % (20.0-50.0); MEAN PLATELET VOLUME 7.6 fl (7.4-10.4); MONOCYTES % 10.3 % (2.0-8.0); NEUTROPHILS % 66.2 % (40.0-76.0); PLATELET 195 x1000/uL (130-400); RED BLOOD CELL COUNT 2.28 mill/uL (4.2-5.4); RED CELL DISTRIBUTION WIDTH 15.7 % (11.6-14.6)
[2025-05-20 13:49] LABS: CREATININE 0.3 mg/dL (0.6-1.0); UREA NITROGEN BLOOD 8 mg/dL (9-23)
[2025-05-21] VITALS (13 sets, daily range): BP systolic 111–145; BP diastolic 61–77; PULSE 86–101; RESP 17–33; TEMP 36.5–37.1; O2SAT 92–98
[2025-05-22] VITALS (15 sets, daily range): BP systolic 102–132; BP diastolic 46–64; PULSE 52–106; RESP 20–35; TEMP 36.3–37.1; O2SAT 81–98
[2025-05-22] MEDS: PANTOPRAZOLE SODIUM 40 MG/VIAL IV SCH (12:57)
[2025-05-22] MEDS ORDERED: DOPAMINE 400MG/250ML PREMIX 250 ML IV SCH (21:45)
[2025-05-22 22:06] LABS: BG CARBOXYHEMOGLOBIN 1.1 % (0.5-1.5); BG DEOXYHEMOGLOBIN 63.6 % (0.0-5.0); BG FRACTION INSPIRED OXYGEN 100; BG METHEMOGLOBIN 0.3 % (0.5-1.5); BG OXYGEN SATURATION 35.5 % (94.0-98.0); BG OXYHEMOGLOBIN 35.0 % (94.0-98.0); BG PCO2 0.0 mmHg (32.0-45.0); BG PH 6.869 (7.350-7.450); BG PO2 29.4 mmHg (83.0-108.0); BG SAMPLE SITE RIGHT RADIAL; BG TOTAL HEMOGLOBIN 8.2 g/dL (12.0-16.0); BG TOTAL RESPIRATORY RATE 26 b/min; BG VENT MODE MASK - BIPAP; BG VENT RATE 24.0 set
[2025-05-23] MEDS ORDERED: PANTOPRAZOLE SODIUM 40 MG/VIAL IV SCH (09:00)
== END 2025-05-23 01:15 | DRG 720 ==
LOC: ER 06:41 → EDBEDREQTM 08:00 → EDBEDREQ 08:00 → EDBEDREQSVC 08:22 → EDBEDREQTM 08:22 → MICUNO 11:40 → 7WST 04-17 23:21 → UNDODISIN 04-19 15:50 → 5EST 04-26 23:17
PROVIDERS: ADMIT Internal Medicine; ATTEND Internal Medicine
PROC: 5A09357 Assistance with Respiratory Ventilation, Less than 24 Consecutive Hours, Continuous Positive Airway Pressure (ICD-10-PCS; 2025-04-15)
PROC: 02H633Z Insertion of Infusion Device into Right Atrium, Percutaneous Approach (ICD-10-PCS; 2025-04-23)
PROC: B548ZZA Ultrasonography of Superior Vena Cava, Guidance (ICD-10-PCS; 2025-04-23)
PROC: 4A00X4Z Measurement of Central Nervous Electrical Activity, External Approach (ICD-10-PCS; principal; 2025-04-27)
PROC: 5A09557 Assistance with Respiratory Ventilation, Greater than 96 Consecutive Hours, Continuous Positive Airway Pressure (ICD-10-PCS; 2025-04-28)
PROC: 5A0945A Assistance with Respiratory Ventilation, 24-96 Consecutive Hours, High Flow/Velocity Cannula (ICD-10-PCS; 2025-05-07)
PROC: 5A09457 Assistance with Respiratory Ventilation, 24-96 Consecutive Hours, Continuous Positive Airway Pressure (ICD-10-PCS; 2025-05-10)
PROC: 5A09357 Assistance with Respiratory Ventilation, Less than 24 Consecutive Hours, Continuous Positive Airway Pressure (ICD-10-PCS; 2025-05-13)
PROC: 5A09457 Assistance with Respiratory Ventilation, 24-96 Consecutive Hours, Continuous Positive Airway Pressure (ICD-10-PCS; 2025-05-13)
PROC: 5A09357 Assistance with Respiratory Ventilation, Less than 24 Consecutive Hours, Continuous Positive Airway Pressure (ICD-10-PCS; 2025-05-16)
PROC: 5A09357 Assistance with Respiratory Ventilation, Less than 24 Consecutive Hours, Continuous Positive Airway Pressure (ICD-10-PCS; 2025-05-17)
PROC: 5A09357 Assistance with Respiratory Ventilation, Less than 24 Consecutive Hours, Continuous Positive Airway Pressure (ICD-10-PCS; 2025-05-18)
PROC: 5A09357 Assistance with Respiratory Ventilation, Less than 24 Consecutive Hours, Continuous Positive Airway Pressure (ICD-10-PCS; 2025-05-19)
PROC: 5A09357 Assistance with Respiratory Ventilation, Less than 24 Consecutive Hours, Continuous Positive Airway Pressure (ICD-10-PCS; 2025-05-20)
PROC: 5A09357 Assistance with Respiratory Ventilation, Less than 24 Consecutive Hours, Continuous Positive Airway Pressure (ICD-10-PCS; 2025-05-21)
PROC: 5A09357 Assistance with Respiratory Ventilation, Less than 24 Consecutive Hours, Continuous Positive Airway Pressure (ICD-10-PCS; 2025-05-22)
PROC: 5A12012 Performance of Cardiac Output, Single, Manual (ICD-10-PCS; 2025-05-23)
DX: A41.9 Sepsis, unspecified organism (principal); J96.01 Acute respiratory failure with hypoxia; D65 Disseminated intravascular coagulation [defibrination syndrome]; R65.21 Severe sepsis with septic shock; G93.41 Metabolic encephalopathy; I82.431 Acute embolism and thrombosis of right popliteal vein; I11.0 Hypertensive heart disease with heart failure; J18.9 Pneumonia, unspecified organism; R13.13 Dysphagia, pharyngeal phase; I50.32 Chronic diastolic (congestive) heart failure; I46.9 Cardiac arrest, cause unspecified; E87.20 Acidosis, unspecified; N17.9 Acute kidney failure, unspecified; E87.6 Hypokalemia; E87.5 Hyperkalemia; I48.0 Paroxysmal atrial fibrillation; E83.42 Hypomagnesemia; E03.9 Hypothyroidism, unspecified; J44.0 Chronic obstructive pulmonary disease with (acute) lower respiratory infection; R13.12 Dysphagia, oropharyngeal phase; F17.210 Nicotine dependence, cigarettes, uncomplicated; E86.0 Dehydration; I82.621 Acute embolism and thrombosis of deep veins of right upper extremity; E78.5 Hyperlipidemia, unspecified; Z66 Do not resuscitate; Z87.01 Personal history of pneumonia (recurrent)
CPT/HCPCS: 31720; 36415; 36573; 36600; 70551; 71045; 74018; 74230; 76604; 76700; 80048; 80053; 80076; 81003; 82375; 82805; 82962; 83605; 83735; 84100; 84145; 84443; 84484; 85025; 85027; 92610; 92611; 93005; 93306; 93880; 93970; 93971; 94003; 94070; 94640; 94660; 94664; 94667; 94760; 95816; 97110; 97162; 97164; 97166; 97168; 97530; 98960; 99291; A4606; C1725; J0456; J0692; J0696; J1160; J1200; J1265; J1650; J1938; J2003; J2185; J2470; J2919; J3475; J3480; J3490; J7030; J7060; J7608; J7626